=== PATIENT | male | born 1980 | race American Indian/Alaskan Native ===

== ENCOUNTER 2021-11-23 08:29 | Emergency (ER) | payer SELFPAY ==
[2021-11-23] MEDS ORDERED: HYDROcodone/ACETAMINOPHEN 5-325 MG TAB PO ONE (09:11)
[2021-11-23] MEDS ORDERED: LIDOCAINE (1%) 10 MG/1 ML VIAL 20 ML MDV INFILTRATI ONE (09:11)
--- NOTE | 2021-11-23 09:17 | Emergency Department Report ---
Upper Extremity - HPI Chief Complaint: Extremity Injury, Upper Stated Complaint: LT ELBOW PAIN Time Seen by Provider: 11/23/21 08:51 Upper Extremity: Left Elbow (Pain and swelling) Occurred When: 4 Days Mechanism: Other (Struck a wall) Severity: moderate, severe Symptoms: Yes Pain with Movement, Yes Limited Range of Movement, Yes Swelling Other History: 41-year-old male with a known history of olecranon bursitis prese nts to the ER today with complaints of pain and swelling to the posterior aspect of his left elbow. Patient states that he accidentally struck his elbow on a wall twice, 4 days ago while she was pulling a pallet enoch at work. He states that since then he has had pain and increased swelling to his posterior left elbow. He states that couple years ago he did have similar symptoms, was diagnosed with bursitis and had the area drained. He reports increased pain with movement of his left elbow. He denies any apparent redness or bruising. He denies any fever chills or any drainage. ED Review of Systems ROS: Stated complaint: LT ELBOW PAIN Other details as noted in HPI Comment: All other systems reviewed and negative Constitutional: denies: chills, fever ENT: denies: ear pain, throat pain Respiratory: denies: cough, shortness of breath, SOB with exertion, SOB at rest, wheezing Cardiovascular: denies: chest pain, palpitations, dyspnea on exertion, edema, syncope, paroxysmal nocturnal dyspnea Gastrointestinal: denies: abdominal pain, nausea, diarrhea Genitourinary: denies: urgency, dysuria Musculoskeletal: joint swelling, arthralgia Skin: denies: change in hair/nails, pruritus Neurological: denies: headache, weakness, numbness, paresthesias, confusion, abnormal gait, vertigo Psychiatric: denies: anxiety, depression, auditory hallucinations, visual hallucinations, homicidal thoughts, suicidal thoughts Hematological/Lymphatic: denies: easy bleeding, easy bruising, swollen glands ED Past Medical Hx - Medications Home Medications: Home Medications Medication Instructions Recorded Confirmed Last Taken Type Clindamycin [Clindamycin CAP] 300 mg PO Q6H #40 cap 11/23/21 Unknown Rx HYDROcodone/APAP 5-325 [[place] 1 each PO Q6HR PRN #10 tablet 11/23/21 Unknown Rx 5/325] Ketorolac [Toradol] 10 mg PO Q6H PRN #20 tab 11/23/21 Unknown Rx Upper Extremity Exam - Exam General: Vital signs noted. No distress. Alert and acting appropriately. Head and Torso: No HEENT Abnormality, No Neck Tenderness, No Chest/Lungs Abnormality, No Abdominal Tenderness, No Back Tenderness Shoulder Exam: Yes Normal Range of Motion in Shoulder, No Shoulder Tenderness, No Clavicle Tenderness, No Shoulder Deformity, No AC Joint Tenderness Arm Exam: No Arm/Humerus Tenderness, No Arm Deformity Elbow: Yes Elbow Tenderness (Severe tenderness to palpation posterior left elbow; moderate swollen bursa noted with some mild associated erythema around posterior elbow and down into mid post forearm. There is mild induration noted lateral aspect of bursa. No swelling noted to anterior elbow. No apparent join t effusion.), No Normal Range of Motion in Elbow (Range of motion of the elbow on the left limited due to pain and swelling the posterior elbow.) Forearm: Yes Pain with Pronation (Mainly to the left elbow), Yes Pain with Supination (Mainly to the left elbow) Wrist: Yes Normal ROM in Wrist, No Wrist Tenderness, No Wrist Deformity, No Snuffbox Tenderness, No Pain with Axial Thumb Compression Hand: Yes Normal ROM in Digit(s), No Hand Tenderness, No Hand Deformity, No Digit Tenderness, No Digit(s) Deformity, No Tendon Dysfunction CMS Exam: Yes Normal Distal Pulses, Yes Normal Capillary Refill, Yes Normal Distal Sensation, No Broken Skin ED Course Vital Signs 11/23/21 08:42 Temperature 98.8 F Pulse Rate 108 H Respiratory 16 Rate Blood Pressure 146/90 [Left] O2 Sat by Pulse 98 Oximetry - I & D Left Posterior Elbow Type of Procedure: Simple Site: posterior elbow /bursa Blade Size: 11 I & D Procedure: betadine prep Progress: Large amount of pus drainage. Patient tolerated well without complications ED Medical Decision Making - Lab Data Result diagrams: 11/23/21 11:21 - Radiology Data Radiology results: report reviewed atient: LIANG RANGEL MR#: [id number] : 1980 Acct:[id number] Age/Sex: 41 / M ADM Date: 11/23/21 Loc: ED Attending Dr: Ordering Physician: ERIC SARGENT Date of Service: 11/23/21 Procedure(s): XR elbow 2V LT Accession Number(s): [id number] cc: ERIC Simon Time In Minutes: XR elbow 2V LT INDICATION / CLINICAL INFORMATION: Elbow swelling/pain. COMPARISON: None available. FINDINGS: BONES/JOINT(S): No acute fracture or subluxation. Chronic avulsion fracture from the tip of the medial epicondyle. SOFT TISSUES: Prominent dorsal soft tissue swelling likely indicating olecranon bursitis. ADDITIONAL FINDINGS: None. Signer Name: Franky Bruno MD Signed: 11/23/2021 10:53 AM Workstation Name: [id number] Transcribed By: MARCELO Dictated By: Franky Bruno MD Electronically Authenticated By: Franky Bruno MD Signed Date/Time: 11/23/211052 DD/ 52 TD/TT: - Medical Decision Making CBC unremarkable XR of elbow shows Prominent dorsal soft tissue swelling likely indicating olecranon bursitis. But no other acute abnormalities. On exam patient did have a infected olecranon bursa which required I&D with large amount of pus drainage. He also had some associated cellulitis which extended mildly down into the posterior mid to upper forearm. No significant lymphangitis. Distal pulses are normal. Sensation and cap refills were normal. Patient was given IV dose of antibiotics here in the ER. Discussed CBC and x- ray results with patient. He will be discharged home with prescription for antibiotics and pain medication. Wound care discussed with patient. Recommend follow-up with primary care doctor and orthopedics nurse. Patient expressed understanding agree with plan. He understands return if worse. Patient was stable at time of discharge. Critical care attestation.: If time is entered above; I have spent that time in minutes in the direct care of this critically ill patient, excluding procedure time. ED Disposition Clinical Impression: Infected olecranon bursa, Cellulitis of left elbow Disposition: HOME / SELF CARE / HOMELESS Is pt being admited?: No Does the pt Need Aspirin: No Condition: Stable Instructions: Elbow Bursitis, [id number], Cellulitis, Adult, [id number] Additional Instructions: Keep the area clean daily with soap and water. Dry well after each cleaning and apply a dressing. Do this daily until it heals. Take the antibiotic as well as the pain meds as prescribed. Recommend limited use of your elbow for the next 2 to 3 days. Follow-up with your primary care doctor and orthopedics nurse in 1 week. Return to the ER if your symptoms changes or worsens in any way. Prescriptions: Clindamycin [Clindamycin CAP] 300 mg PO Q6H #40 cap HYDROcodone/APAP 5-325 [[place] 5/325] 1 each PO Q6HR PRN #10 tablet PRN Reason: Pain Ketorolac [Toradol] 10 mg PO Q6H PRN #20 tab PRN Reason: Pain Referrals: CANDIDA MARQUEZ MD [Primary Care Provider] - 3-5 Days Forms: Work/School Release Form(ED) Time of Disposition: 11:43
[2021-11-23] MEDS ORDERED: SODIUM CHLORIDE 0.9% 1000 ML 1,000 ML IV ONE (10:23)
--- NOTE | 2021-11-23 10:57 | XRay Report ---
XR elbow 2V LT INDICATION / CLINICAL INFORMATION: Elbow swelling/pain. COMPARISON: None available. FINDINGS: BONES/JOINT(S): No acute fracture or subluxation. Chronic avulsion fracture from the tip of the media l epicondyle. SOFT TISSUES: Prominent dorsal soft tissue swelling likely indicating olecranon bursitis. ADDITIONAL FINDINGS: None. Signer Name: Franky Bruno MD Signed: 11/23/2021 10:53 AM Workstation Name: [id number]
[2021-11-23 11:32] LABS: Basophils % (Auto) 0.3 % (0.0-1.8); Eosinophils # (Auto) 0.1 K/mm3 (0.0-0.4); Eosinophils % (Auto) 1.6 % (0.0-4.3); Hematocrit 38.3 % (35.5-45.6); Hemoglobin 13.5 gm/dl (11.8-15.2); Lymphocytes % (Auto) 11.3 % (13.4-35.0); Mean Corpuscular HGB Conc 35 % (32-34); Mean Corpuscular Volume 90 fl (84-94); Monocytes # (Auto) 0.7 K/mm3 (0.0-0.8); Platelet Count 291 K/mm3 (140-440); Red Blood Count 4.26 M/mm3 (3.65-5.03); Red Cell Distribution Width 12.9 % (13.2-15.2)
[2021-11-23 12:05] VITALS: BP 135/91
== END 2021-11-23 12:05 | disposition home or self-care (01) ==
LOC: ED 08:29
DX: M70.20 Olecranon bursitis, unspecified elbow (principal); L03.114 Cellulitis of left upper limb
CPT/HCPCS: 10060; 36415; 73070; 85025; 96361; 96365; 99284; J3490; J7030; J7502; Q0162